=== PATIENT | female | born 1945 | race Caucasian/White ===

== ENCOUNTER → 2018-09-19 | Outpatient (CLI) | payer OTHER ==
[~2018-09-19] MED LIST: ASPI-496 PO; CYCL1DRO OP; PANT40TA5 PO; TRAZ150T62 PO; VILA40TA PO
== END | disposition home or self-care (01) ==
LOC: CFH 07:40
PROVIDERS: ATTEND Family Medicine
DX: R92.8 Other abnormal and inconclusive findings on diagnostic imaging of breast (principal); Z98.82 Breast implant status; Z90.11 Acquired absence of right breast and nipple
CPT/HCPCS: 77066; G0279

== ENCOUNTER → 2019-11-14 | Outpatient (CLI) | payer OTHER | END | disposition home or self-care (01) | LOC: CFH 07:02 | PROVIDERS: ATTEND Family Medicine | DX: C50.111 Malignant neoplasm of central portion of right female breast (principal); M81.0 Age-related osteoporosis without current pathological fracture | CPT/HCPCS: 77066; G0279 ==

== ENCOUNTER → 2020-11-18 | Outpatient (CLI) | payer OTHER ==
[~2020-11-18] MED LIST changes: -PANT40TA5 PO; +PANT40TA6 PO
== END | disposition home or self-care (01) ==
LOC: CFH 06:53
PROVIDERS: ATTEND Family Medicine
DX: C50.111 Malignant neoplasm of central portion of right female breast (principal)
CPT/HCPCS: 77062; 77066; G0279